=== PATIENT | male | born 1965 | race Caucasian/White ===

== ENCOUNTER 2023-01-27 18:50 | Outpatient (CLI) | payer BC, MEDICAID, SELFPAY | END 2023-01-27 18:51 | disposition home or self-care (01) | PROVIDERS: Visit Provider Family Medicine | DX: R45.851 Suicidal ideations (principal); F29 Unspecified psychosis not due to a substance or known physiological condition; F10.129 Alcohol abuse with intoxication, unspecified | CPT/HCPCS: A0425; A0429 ==

== ENCOUNTER 2024-02-20 22:52 | Outpatient (CLI) | payer BC, SELFPAY | END 2024-02-20 22:53 | disposition home or self-care (01) | LOC: AMB 03-16 03:16 | PROVIDERS: Visit Provider Family Medicine | DX: R45.851 Suicidal ideations (principal) | CPT/HCPCS: A0425; A0427 ==

== ENCOUNTER 2024-05-03 19:18 | Outpatient (CLI) | payer BC, SELFPAY | END 2024-05-03 19:19 | disposition home or self-care (01) | LOC: AMB 05-05 05:38 | PROVIDERS: Visit Provider Family Medicine | DX: F10.129 Alcohol abuse with intoxication, unspecified (principal); R45.851 Suicidal ideations; F03.90 Unspecified dementia, unspecified severity, without behavioral disturbance, psychotic disturbance, mood disturbance, and anxiety | CPT/HCPCS: A0425; A0429 ==

== ENCOUNTER 2024-07-16 21:41 | Outpatient (CLI) | payer BC, SELFPAY | END 2024-07-16 21:42 | disposition home or self-care (01) | LOC: AMB 07-25 02:25 | PROVIDERS: Visit Provider Family Medicine | DX: R45.851 Suicidal ideations (principal) | CPT/HCPCS: A0425; A0429 ==

== ENCOUNTER 2024-08-04 17:42 | Outpatient (CLI) | payer BC, SELFPAY | END 2024-08-04 17:43 | disposition home or self-care (01) | LOC: AMB 08-07 09:45 | PROVIDERS: Visit Provider Family Medicine | DX: R45.851 Suicidal ideations (principal); F10.129 Alcohol abuse with intoxication, unspecified | CPT/HCPCS: A0425; A0429 ==

== ENCOUNTER 2024-09-20 10:11 | Outpatient (CLI) | payer MEDICAID, SELFPAY | END 2024-09-20 10:12 | disposition home or self-care (01) | LOC: AMB 09-21 08:04 | PROVIDERS: Visit Provider Emergency Medicine | DX: F10.129 Alcohol abuse with intoxication, unspecified (principal) | CPT/HCPCS: A0425; A0429 ==